=== PATIENT | male | born 1975 | race African-American/Black ===

== ENCOUNTER 2017-01-25 13:07 | Emergency (ER) | payer SELFPAY ==
[2017-01-25 13:40] VITALS: BP 136/57
== END 2017-01-25 14:28 | disposition home or self-care (01) ==
LOC: ED 13:07
DX: K08.89 Other specified disorders of teeth and supporting structures (principal)

== ENCOUNTER 2017-03-18 02:16 | Emergency (ER) | payer BC ==
[~2017-03-18] VITALS: Ht 175.3 cm; Wt 66.0 kg
[2017-03-18 03:11] VITALS: BP 110/74
== END 2017-03-18 03:11 | disposition home or self-care (01) ==
LOC: ED 02:16
DX: K08.89 Other specified disorders of teeth and supporting structures (principal); R22.0 Localized swelling, mass and lump, head

== ENCOUNTER 2017-04-08 00:50 | Emergency (ER) | payer BC ==
[2017-04-08 02:01] VITALS: BP 128/89
== END 2017-04-08 02:01 | disposition home or self-care (01) ==
LOC: ED 00:50
DX: K08.89 Other specified disorders of teeth and supporting structures (principal)

== ENCOUNTER 2018-02-05 02:10 | Emergency (ER) | payer OTHER ==
[2018-02-05 02:35] VITALS: BP 98/75
== END 2018-02-05 02:35 | disposition home or self-care (01) ==
LOC: ED 02:10
DX: H92.02 Otalgia, left ear (principal)

== ENCOUNTER 2018-05-25 11:28 | Emergency (ER) | payer OTHER ==
[2018-05-25 11:39] VITALS: BP 113/65
== END 2018-05-25 12:22 | disposition home or self-care (01) ==
LOC: ED 11:28
DX: R51 Headache (principal); M54.9 Dorsalgia, unspecified

== ENCOUNTER 2018-09-12 06:28 | Emergency (ER) | payer OTHER ==
[~2018-09-12] VITALS: Ht 175.3 cm; Wt 73.5 kg
[2018-09-12 06:47] VITALS: BP 131/82; Ht 175.3 cm; Wt 73.5 kg
== END 2018-09-12 07:57 | disposition home or self-care (01) ==
LOC: ED 06:28
DX: N34.2 Other urethritis (principal)
CPT/HCPCS: 87491; 87591; J0696; J2001

== ENCOUNTER 2019-08-11 13:58 | Emergency (ER) | payer OTHER ==
[~2019-08-11] VITALS: Ht 175.3 cm; Wt 72.6 kg
[2019-08-11 14:10] VITALS: BP 127/78; Ht 175.3 cm; Wt 72.6 kg
== END 2019-08-11 15:28 | disposition home or self-care (01) ==
LOC: ED 13:58
DX: R04.0 Epistaxis (principal); R51 Headache; R11.0 Nausea

== ENCOUNTER 2019-10-20 00:10 | Emergency (ER) | payer OTHER ==
[~2019-10-20] VITALS: Ht 175.3 cm; Wt 70.9 kg
[2019-10-20 00:22] VITALS: Ht 175.3 cm; Wt 70.9 kg
[2019-10-20 04:15] VITALS: BP 125/73
[2019-10-21 08:06] LABS: RAPID PLASMA REAGIN Reactive (Non Reactive)
== END 2019-10-20 04:15 | disposition home or self-care (01) ==
LOC: ED 00:10
PROVIDERS: Emergency Medicine
DX: Z20.2 Contact with and (suspected) exposure to infections with a predominantly sexual mode of transmission (principal); E11.9 Type 2 diabetes mellitus without complications
CPT/HCPCS: 87491; 87591; J0561; J0696